=== PATIENT | male | born 1990 | race Caucasian/White ===

== ENCOUNTER 2022-09-29 08:50 | Emergency (ER) | payer SELFPAY ==
[~2022-09-29] VITALS: Ht 162.6 cm; Wt 63.5 kg
[2022-09-29 08:57] VITALS: BP 140/90
[2022-09-29] MEDS ORDERED: AMOX-1230 PO (10:25)
[2022-09-29] MEDS ORDERED: SUD30 PO (10:25)
== END 2022-09-29 10:45 | disposition home or self-care (01) ==
LOC: MED 08:50
DX: H65.92 Unspecified nonsuppurative otitis media, left ear (principal); Z79.899 Other long term (current) drug therapy
CPT/HCPCS: 99283